=== PATIENT | male | born 1955 | race Caucasian/White ===

== ENCOUNTER 2022-10-28 09:42 | Outpatient (AMB) | payer MEDICARE, SELFPAY ==
--- NOTE | 2022-10-28 09:50 | MHC.PC.OV ---
Vital Signs 10/28/22 09:53 Height 5 ft 7 in Weight 215 lb BMI 33.6 BP 118/70 Blood Pressure Location Lt brachial Position Sitting Pulse 93 Pulse Source Pulse Oximeter Pulse Oximetry (%) 96 Oxygen Delivery Method Room Air Intake Visit Reasons: Est. care Intake Note: Pt is here today as a New Patient to est care/PE Allergies No Known Allergies Allergy (Verified 10/28/22 10:10) Medication List - Last Reconciled 10/28/22 by Gosia Wilson MD No Known Home Meds Tobacco use date assessed: 10/28/22 Fall risk assessment: No Falls in past year Last assessed Fall Risk: 10/28/22 HPI Est. care HPI Details 67-year-old male, here today to establish care with new PCP and for physical exam. He was initially seen at [facility], after he moved here from [place] with his . 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 He has history of hypertension and hyperlipidemia in the past, but stopped medication intake several years ago, trying to control both through diet and exercise. He states that he was on lisinopril in the past and took atorvastatin but stop taking it due to increased myalgia. As per last PCP note , he had a screening colonoscopy done in 2016, was supposed to be repeated in 5 years.? History of small-bowel obstruction that resolved with bowel rest, unclear if the etiology. He has history of cervical fracture in 2007 complains of occasional arthralgia in both knees, has questionable history of gout [facility] Medical History (Updated 10/28/22 @ 10:19 by Gosia Wilson MD) Hx of gout Surgical History (Updated 10/28/22 @ 10:17 by Gosia Wilson MD) History of tonsillectomy Family History (Updated 10/28/22 @ 10:18 by Gosia Wilson MD) Father Hypertension Social History Housing: House Patient Tobacco Use Status: Never used Tobacco e-Cigarette/Vaping Use: Never Used service: No Current occupational status: employed Cognitive needs: No Hearing needs: No Vision needs: Yes Questionnaire PHQ-9 Over the last 2 weeks, how often have you been bothered by any of the following problems? 1. Little interest or pleasure in doing things: not at all 2. Feeling down, depressed, or hopeless: not at all 3. Trouble falling or staying asleep, or sleeping too much: not at all 4. Feeling tired or having little energy: not at all 5. Poor appetite or overeating: not at all 6. Feeling bad about yourself - or that you are a failure or have let yourself or your family down: not at all 7. Trouble concentrating on things, such as reading the newspaper or watching television: not at all 8. Moving or speaking so slowly that other people could have noticed. Or the opposite - being so fidgety or restless that you have been moving around a lot more than usual: not at all 9. Thoughts that you would be better off or of hurting yourself in some way: not at all Total score: 0 Source: Developed by Drs. Dionte Camp, Marleny May, Bartolome Oconnor and colleagues, with an educational priyanka from [employer]. Thrive Questionnaire Declines Thrive assessment: No Date Thrive assessed: 10/28/22 I am a: Patient What is your living situation today?: I have a steady place to live Within the past 12 months, did the food you bought not last and you didn't have the money to get more?: Never true Within the past 12 months, did you worry whether your food would run out before you got money to buy more?: Never true Do you have trouble paying for medicines?: No Do you have trouble getting transportation to medical appointments?: No Do you have trouble paying your heating and electricity bill?: No Do you have trouble taking care of your child, family member or friend?: No Do you have trouble with day-to-day activities such as bathing, preparing meals, shopping, managing finances, etc.?: No Are you currently unemployed and looking for a job?: No Are you interested in more education?: Yes AUDIT C Alcohol Use Questionnaire (AUDIT-C) 1. How often do you have a drink containing alcohol?: Never Total Score: 0 NUZHAT-7 AMB Questionnaire NUZHAT-7 Date NUZHAT - 7 assessed: 10/28/22 Feeling nervous, anxious, or on edge: 0 = Not at all Not being able to stop or control worryin = Not at all Worrying too much about different things: 0 = Not at all Trouble relaxin = Not at all Being so restless that it is hard to sit still: 0 = Not at all Becoming easily annoyed or irritable: 0 = Not at all Feeling afraid as if something awful might happen: 0 = Not at all Total NUZHAT-7 score (0-4 normal; 5-9 mild; 10-14 moderate; 15-21 severe): 0 Source: Developed by Drs. Dionte Camp, Marleny May, Bartolome Oconnor and colleagues, with an educational priyanka from [employer]. Physical exam (Primary Care) Vital Signs: Last Vital Signs Pulse 93 10/28/22 09:53 BP 118/70 10/28/22 09:53 Pulse Ox 96 10/28/22 09:53 Oxygen Delivery Method Room Air 10/28/22 09:53 BMI result Body Mass Index 33.6 Tobacco/Smoking Status: Tobacco use Status Tobacco use date assessed 10/28/22 10/28/22 09:56 Patient Tobacco Use Status Never used Tobacco 10/28/22 09:56 e-Cigarette/Vaping Use Never Used 10/28/22 09:56 Assessment and Plan Assessment & Plan (1) Annual visit for general adult medical examination with abnormal findings: Code(s): Z00.01 - Encounter for general adult medical examination with abnormal findings Plan: Will check appropriate labs. Recommended dental visit every 6 months and regular eye exams, at least every 2 years, [place] [employer] [place]. Take adequate calcium in diet and vitamin-D 3 at 2000 IU per cap once a day, in addition to weight-bearing exercises to help maintain good muscle tone and weight control. Instructed to do self-b testicular exam to check for any mass. Patient advised to get his COVID vaccine, flu shot pneumonia vaccine and shingles but patient declined. As per the history he had a colonoscopy in 2016 at [place], was recommended to get it done in 5 years but as per patient , they only saw hemorrhoids. Does Not want to get a colonoscopy, but is willing to do the Cologuard testing, order sent (2) Screening for prostate cancer: Code(s): Z12.5 - Encounter for screening for malignant neoplasm of prostate Plan: PSA ordered (3) Advanced directives, counseling/discussion: Code(s): Z71.89 - Other specified counseling Plan: Initiated the conversation about Advanced Directives. Advanced Directives help patients prepare for current and future decisions about their medical treatment and place of care. Discussed with patient that it is a process where a patients current condition and prognosis are reviewed, their wishes for information regarding their illness are elicited, and likely medical dilemmas are presented and options discussed.Health Care Proxy form completed. The form can be amended as needed, reviewed yearly and make changes as needed Orders: Orders Alanine Aminotransferase Today Z00.01 - Encounter for general adult medical examination with abnormal findings, Z87.39 - Personal history of other diseases of the musculoskeletal system and connective tissue Aspartate Amino Transferase Today Z00.01 - Encounter for general adult medical examination with abnormal findings, Z87.39 - Personal history of other diseases of the musculoskeletal system and connective tissue Basic Metabolic Panel Fasting Today Z00.01 - Encounter for general adult medical examination with abnormal findings, Z87.39 - Personal history of other diseases of the musculoskeletal system and connective tissue Lipid Panel Today Z00.01 - Encounter for general adult medical examination with abnormal findings, Z87.39 - Personal history of other diseases of the musculoskeletal system and connective tissue PSA,Total (Free>4and<10) Today Z00.01 - Encounter for general adult medical examination with abnormal findings, Z12.5 - Encounter for screening for malignant neoplasm of prostate, Z87.39 - Personal history of other diseases of the musculoskeletal system and connective tissue Uric Acid Today Z00.01 - Encounter for general adult medical examination with abnormal findings, Z87.39 - Personal history of other diseases of the musculoskeletal system and connective tissue Complete Blood Count Auto Diff Today Z00.01 - Encounter for general adult medical examination with abnormal findings, Z87.39 - Personal history of other diseases of the musculoskeletal system and connective tissue Referrals Cologuard Test Z12.11 - Encounter for screening for malignant neoplasm of colon, Z12.12 - Encounter for screening for malignant neoplasm of rectum Review Patient declined Colonoscopy: 10/28/22 Patient declined Pneumococcal Vaccine: 10/28/22 Flu Vaccine not done: patient reason (Patient declined) Declined TDap/Td: 10/28/22 Coding Level of Care Code Est Pt Prev Care >65y(21534) Diagnoses Annual visit for general adult medical examination with abnormal findings Z00.01 Screening for prostate cancer Z12.5 Advanced directives, counseling/discussion Z71.89
[2022-10-28 09:53] VITALS: BP 118/70; PULSE 93; O2SAT 96; BMI 33.6
== END 2022-10-28 13:58 | disposition home or self-care (01) ==
PROVIDERS: PCP Internal Medicine; Visit Provider Internal Medicine
DX: Z00.01 Encounter for general adult medical examination with abnormal findings (principal); Z12.5 Encounter for screening for malignant neoplasm of prostate; Z71.89 Other specified counseling
CPT/HCPCS: 99499

== ENCOUNTER 2022-11-09 06:08 | Outpatient (REF) | payer MEDICARE, SELFPAY ==
[2022-11-09 11:19] LABS: MANUAL DIFF FLAG NO
[2022-11-09 11:23] LABS: Basophils Absolute Auto 0.1 X10*3/uL (0.0-0.2); Basophils Percent Auto 1.4 % (0-2); Eosinophils Absolute Auto 0.5 X10*3/uL (0.0-0.4); Eosinophils Percent Auto 7.8 % (0-4); Hematocrit 46.9 % (42.0-52.0); Hemoglobin 15.9 g/dl (14.0-18.0); Imm Gran Abs Auto 0.02 X10*3/uL (0.00-0.03); Imm Gran Pct Auto 0.3 % (0.0-0.4); Lymphocytes Absolute Auto 0.6 X10*3/uL (1.2-4.9); Lymphocytes Percent Auto 10.9 % (20-40); Mean Corpuscular HGB Conc 33.9 g/dl (31.0-36.0); Mean Corpuscular Hemoglobin 30.1 pg (27.0-33.0); Mean Corpuscular Volume 88.7 fL (80.0-98.0); Mean Platelet Volume 11.1 fL (9.4-12.4); Monocytes Absolute Auto 0.7 X10*3/uL (0.1-1.2); Monocytes Percent Auto 11.8 % (2-11); Neutrophils Absolute Auto 3.9 x10*3/uL (2.0-8.3); Neutrophils Percent Auto 67.8 % (45-73); Platelet Count 247 X10*3/uL (160-400); Red Blood Count 5.29 X10*6/uL (4.60-5.80); White Blood Count 5.8 X10*3/uL (4.8-10.8)
[2022-11-09 11:38] LABS: Alanine Aminotransferase 18 U/L (0-40); Anion Gap 11 (12-20); Aspartate Amino Transferase 20 U/L (5-37); Blood Urea Nitrogen 18 mg/dL (9-16); Calcium 9.4 mg/dL (8.4-10.2); Carbon Dioxide 27 mmol/L (22-29); Chloride 107 mmol/L (96-108); Cholesterol 193 mg/dL; Estimated Glomerular Filt Rate > 60; Glucose Fasting 115 mg/dL (60-99); HDL Cholesterol 33 mg/dL; LDL Cholesterol Calculated 138 mg/dl; Potassium 4.4 mmol/L (3.3-5.1); Sodium 141 mmol/L (135-145); Triglycerides 111 mg/dL
== END 2022-11-09 06:09 | disposition home or self-care (01) ==
LOC: HO.HMGCLDS 06:08
PROVIDERS: PCP Internal Medicine; Visit Provider Internal Medicine
DX: Z00.01 Encounter for general adult medical examination with abnormal findings (principal); Z12.5 Encounter for screening for malignant neoplasm of prostate; Z87.39 Personal history of other diseases of the musculoskeletal system and connective tissue
CPT/HCPCS: 36415; 80048; 80061; 84153; 84450; 84460; 84550; 85025

== ENCOUNTER 2023-11-01 10:50 | Outpatient (AMB) | payer MEDICARE, SELFPAY ==
--- NOTE | 2023-11-01 11:12 | A.OFFPC_ITS ---
Vital Signs 11/01/23 11:13 Height 5 ft 7 in Weight 209 lb 6 oz BMI 32.8 BP 132/88 Blood Pressure Location Lt brachial Position Sitting Pulse 82 Pulse Source Pulse Oximeter Pulse Oximetry (%) 98 Oxygen Delivery Method Room Air Intake Visit Reasons: PE Intake Note: Pt is here for his Annual PE Allergies No Known Allergies Allergy (Verified 11/01/23 11:32) Medication List - Last Reconciled 11/01/23 by Gosia Wilson MD No Known Home Meds Tobacco use date assessed: 11/01/23 Fall risk assessment: No Falls in past year Last assessed Fall Risk: 11/01/23 Dental Screening Dental Screen Date: 11/01/23 Did you have a dental visit in the last 12 months?: Yes Did you have a dental problem in the last 6 months where you did not have access to dental care?: No Was dental information given to patient?: Patient has dentist HPI PE HPI Details [age]-year-old male, here today for his ph ysical exam. He has a mild elevation is LDL cholesterol on last check, and fasting glucose was in the prediabetic range on last year's physical exam. At present however he does not have any complains. Declined a screening colonoscopy last year but did a Cologuard earlier this year which came back negative, repeat again in 3 years. [facility] Medical History (Updated 11/01/23 @ 11:54 by Gosia Wilson MD) Vaccine refused by patient Impaired fasting glucose Negative colorectal cancer screening using DNA-based stool test Hx of gout Surgical History History of tonsillectomy Family History Father Hypertension Social History Housing: House Patient Tobacco Use Status: Never used Tobacco e-Cigarette/Vaping Use: Never Used service: No Current occupational status: employed Cognitive needs: No Hearing needs: No Vision needs: Yes Questionnaire PHQ-9 Over the last 2 weeks, how often have you been bothered by any of the following problems? 1. Little interest or pleasure in doing things: not at all 2. Feeling down, depressed, or hopeless: not at all 3. Trouble falling or staying asleep, or sleeping too much: not at all 4. Feeling tired or having little energy: not at all 5. Poor appetite or overeating: not at all 6. Feeling bad about yourself - or that you are a failure or have let yourself or your family down: not at all 7. Trouble concentrating on things, such as reading the newspaper or watching television: not at all 8. Moving or speaking so slowly that other people could have noticed. Or the opposite - being so fidgety or restless that you have been moving around a lot more than usual: not at all 9. Thoughts that you would be better off or of hurting yourself in some way: not at all Total score: 0 Depression Screening Interpretation: Negative Depression Screening Done: Yes 13616 - PHQ-9 Billing: Yes Source: Developed by Drs. Dionte Camp, Marleny May, Bartolome Oconnor and colleagues, with an educational priyanka from [employer]. Thrive Questionnaire Date Thrive assessed: 11/01/23 I am a: Patient What is your living situation today?: I have a steady place to live Within the past 12 months, did the food you bought not last and you didn't have the money to get more?: Never true Within the past 12 months, did you worry whether your food would run out before you got money to buy more?: Never true Do you have trouble paying for medicines?: No Do you have trouble getting transportation to medical appointments?: No Do you have trouble paying your heating and electricity bill?: No Do you have trouble taking care of your child, family member or friend?: No Do you have trouble with day-to-day activities such as bathing, preparing meals, shopping, managing finances, etc.?: No Are you currently unemployed and looking for a job?: No Are you interested in more education?: No AUDIT C Alcohol Use Questionnaire (AUDIT-C) 1. How often do you have a drink containing alcohol?: Never Total Score: 0 NUZHAT-7 AMB Questionnaire NUZHAT-7 Date NUZAHT - 7 assessed: 11/01/23 Feeling nervous, anxious, or on edge: 0 = Not at all Not being able to stop or control worryin = Not at all Worrying too much about different things: 0 = Not at all Trouble relaxin = Not at all Being so restless that it is hard to sit still: 0 = Not at all Becoming easily annoyed or irritable: 0 = Not at all Feeling afraid as if something awful might happen: 0 = Not at all Total NUZHAT-7 score (0-4 normal; 5-9 mild; 10-14 moderate; 15-21 severe): 0 Source: Developed by Drs. Dionte Camp, Marleny May, Bartolome Oconnor and colleagues, with an educational priyanka from [employer]. NUZHAT-7 Assessment Billing NUZHAT-7 Assessment Tool: NUZHAT-7 Assessment 19493 Review of Systems Const Denies body aches, Denies fatigue, Denies fever(s), Denies headache(s) and Denies weakness Eyes Details: Recently seen by eye doctor in [place], beginning cataracts, no other changes seen Denies change in vision, Denies eye discharge and Denies itchy eyes ENT Denies dizziness, Denies headache(s), Denies nasal congestion, Denies nasal discharge and Denies sore throat Card Denies chest pain, Denies lightheadedness, Denies palpitations and Denies dyspnea Resp Denies chest congestion, Denies cough, Denies dyspnea and Denies wheezing GI Denies abdominal pain, Denies change in bowel habits and Denies heartburn Denies hematuria, Denies difficulty urinating, Denies dysuria, Denies urinary frequency and Denies urinary urgency Musc Reports no additional complaints Skin/Breast Denies lesions and Denies rash Neuro Denies dizziness, Denies headache(s) and Denies weakness Psych Reports no additional complaints Endo Denies fatigue, Denies polydipsia, Denies polyuria and Denies palpitations Rey/Lymph Denies easy bruising Aller/Immun Denies itchy eyes, Denies seasonal rhinorrhea and Denies wheezing Physical exam (Primary Care) Vital Signs: Last Vital Signs Pulse 82 11/01/23 11:13 BP 132/88 11/01/23 11:13 Pulse Ox 98 11/01/23 11:13 Oxygen Delivery Method Room Air 11/01/23 11:13 BMI result Body Mass Index 32.8 Tobacco/Smoking Status: Tobacco use Status Tobacco use date assessed 11/01/23 11/01/23 11:17 Patient Tobacco Use Status Never used Tobacco 11/01/23 11:12 e-Cigarette/Vaping Use Never Used 11/01/23 11:12 Depression Screening Interpretation: Negative Thrive Assessment: Date of Thrive Assessment Date Thrive assessed 10/28/22 11/01/23 11:12 Const General: no acute distress and alert Nutritional Appearance: obese Orientation/consciousness: patient oriented x3 HENMT Head: Yes normocephalic and Yes atraumatic Ears: external ears normal, TM's normal bilaterally and EAC's normal General nose exam: Normal external nose present and No nasal discharge present Face and sinus: Yes face symmetric Mouth: Normal oral and palatal mucosa present, lip normal, tongue normal, oropharynx normal and moist mucous membranes Eyes General: appearance normal, both eyes and all related structures Eyelids: Yes eyelids normal Conjunctivae: conjunctivae normal Sclerae: sclerae normal Pupils: Equal, round and reactive pupils present EOM: EOMs intact bilaterally Neck Neck: Yes full ROM, Yes no lymphadenopathy and Yes supple Thyroid: Thyroid normal Chest Chest palpation & inspection: normal inspection of the chest and normal palpation of entire chest wall Resp Effort & Inspection: normal respiratory effort and able to speak in complete sentences Auscultation: clear to auscultation bilaterally Cardio Rate: regular rate Rhythm: regular rhythm Heart sounds: S1 normal heart sound present and S2 normal heart sound present GI Palpation (GI): Soft to palpation, nontender, no guarding and no masses Auscultation: normal bowel sounds General: Yes no CVA tenderness Male General Exam: Yes normal external exam and No hernia Back/Spine/Pelvis Back: no CVA tenderness and No back tenderness Skin General skin exam: no rashes or lesions noted Neuro General: patient oriented x3, gait normal, moves all extremities, Normal light touch and pain sensation, no focal motor deficits and CN's II-XI intact bilaterally Cranial nerves: Yes Equal, round and reactive pupils present Cognition (Neuro): normal cognition Gait exam (Neuro): Normal gait present Motor exam (neuro): 5/5 motor strength present throughout Extrem General: Yes normal to inspection, Yes full ROM, Yes no joint enlargement, Yes no pedal edema and Yes normal gait Psych Appearance: grossly normal and well kempt Mental Status: mental status grossly normal Speech and movement: Normal speech and movement present Affect: normal affect Attitude: cooperative Thought process: Normal thought process present Thought content: Normal thought content present Assessment and Plan Assessment & Plan (1) Annual visit for general adult medical examination with abnormal findings: Code(s): Z00.01 - Encounter for general adult medical examination with abnormal findings Plan: Will check appropriate labs. Continue regular dental visit every 6 months and regular eye exams, at least every 2 years. Take adequate calcium in diet and vitamin-D 3 at 2000 IU per cap once a day, in addition to weight-bearing exercises to help maintain good muscle tone and weight control. Instructed to do self-testicular exam, check for any mass . Declined vaccination. Up-to-date with his colon cancer screening, had Cologuard testing done earlier this year with negative findings. (2) Screening for prostate cancer: Code(s): Z12.5 - Encounter for screening for malignant neoplasm of prostate Plan: PSA ordered (3) Elevated LDL cholesterol level: Code(s): E78.00 - Pure hypercholesterolemia, unspecified Plan: Repeat fasting lipid panel (4) Impaired fasting glucose: Code(s): R73.01 - Impaired fasting glucose Plan: Hemoglobin A1c and fasting blood sugar ordered. Your fasting blood sugars 1 elevated above 100 mg/dL last year.. Impaired glucose metabolism O2 at risk for developing diabetes mellitus type 2, as well as heart attack and stroke later on. Lifestyle changes at just weight loss, healthy eating habits, and regular exercise are important, and can prevent the progression to diabetes (5) Vaccine refused by patient: Code(s): Z28.20 - Immunization not carried out because of patient decision for unspecified reason Orders: Orders Basic Metabolic Panel Fasting Today E78.00 - Pure hypercholesterolemia, unspecified, R73.01 - Impaired fasting glucose, Z00.01 - Encounter for general adult medical examination with abnormal findings, Z12.5 - Encounter for screening for malignant neoplasm of prostate Lipid Panel Today E78.00 - Pure hypercholesterolemia, unspecified, R73.01 - Impaired fasting glucose, Z00.01 - Encounter for general adult medical examination with abnormal findings, Z12.5 - Encounter for screening for malignant neoplasm of prostate PSA,Total (Free>4and<10) Today E78.00 - Pure hypercholesterolemia, unspecified, R73.01 - Impaired fasting glucose, Z00.01 - Encounter for general adult medical examination with abnormal findings, Z12.5 - Encounter for screening for malignant neoplasm of prostate Hemoglobin A1c Today E78.00 - Pure hypercholesterolemia, unspecified, R73.01 - Impaired fasting glucose, Z00.01 - Encounter for general adult medical examination with abnormal findings, Z12.5 - Encounter for screening for malignant neoplasm of prostate Coding Level of Care Code Est Pt Prev Care >65y(78950) Diagnoses Annual visit for general adult medical examination with abnormal findings Z00. 01 Screening for prostate cancer Z12.5 Elevated LDL cholesterol level E78.00 Impaired fasting glucose R73.01 Vaccine refused by patient Z28.20 Additional Codes NUZHAT-7 Assessment Billing - NUZHAT-7 Assessment Tool: NUZHAT-7 Assessment [id number] ([id number])
[2023-11-01 11:13] VITALS: BP 132/88; PULSE 82; O2SAT 98; BMI 32.8
== END 2023-11-01 11:51 | disposition home or self-care (01) ==
PROVIDERS: Visit Provider Internal Medicine
DX: Z00.00 Encounter for general adult medical examination without abnormal findings (principal); Z12.5 Encounter for screening for malignant neoplasm of prostate; E78.00 Pure hypercholesterolemia, unspecified; R73.01 Impaired fasting glucose; Z28.20 Immunization not carried out because of patient decision for unspecified reason
CPT/HCPCS: 99397

== ENCOUNTER 2025-08-09 06:44 | Outpatient (REF) | payer MEDICARE, SELFPAY ==
--- OUTSIDE RECORDS SUMMARY | 2025-08-09 06:48 | XMS_ITS | Data Portability ---
Author Organization [place] [facility] Faiza Frazier AONE [place] Address [address] [place] [address] Care Team Providers Care As400 Developer Name Role Phone JYOTHI MUNOZ Primary Care Provider JYOTHI MUNOZ Referring Provider [phone] Assessment Encounter Date Assessment Date Assessment LastModified by Organization Details LastModified Time 04/24/2025 04/24/2025 HPI: 69-year-old keldq-nqqa-hbrytw nt man presenting with left shoulder pain for the past 8 months. Is noted decreased range of motion he has no pain during the day but his pain worsens at night. 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 He rates his pain at best 0 out of 10 at worst 7-10. SANE score 98%. ROS as per HPI. PHYSICAL EXAM: Constitutional: Well-developed, well-nourished, healthy appearing. Skin: Warm, dry, and without rashes. Pulmonary: Non-labored respirations on room air without audible wheezes. Musculoskeletal: Patient ambulates with a slow, symmetric, and steady gait. Active range of motion of the RIGHT shoulder is 170,50, T8 and LEFT shoulder is 160,50, T10 On the symptomatic LEFT shoulder, Neer & Hakwins signs are Negative, Krysta sign is Negative and resisted ER strength is preserved 5/5 On the contralateral RIGHT shoulder, Neer & Hakwins signs are Negative, Krysta sign is Negative and resisted ER strength is preserved 5/5 No AC, SC, biceps signs, cross body adduction, scars, atrophy, deformity, belly press, lift off, external rotation lag sign, internal rotation lag sign, Hornblower's bilaterally. Fingers well perfused and normal. Capillary refill less than 2 seconds. Neurovascular exam, cervical spine exam, trunk and skin are normal. IMPRESSION: with LEFT shoulder glenohumeral arthritis PLAN: I discussed the treatment options with the Patient includin. Living with the symptoms. 2. Continued non-operative management. 3. Surgical intervention. Nonoperative management be in the form of activity modification, relative rest, judicious use of anti-inflammatory medications as well as cryotherapy and corticosteroid injections. Operative intervention would be in the form of anatomic versus possible reverse shoulder replacement. We reviewed the risks and benefits of surgery including but not limited to the following: Risk of anesthesia, including ; infection; nerve/tendon/vess el injury; deep venous thrombosis (DVT), pulmonary embolism (PE); shoulder stiffness, allograft-related complications including but not limited to failure, disease transmission; hardware-related problems; failure of the graft to heal; failure of the partial rotator cuff repair to heal if performed; hardware-related problems, potential of the procedure to not alleviate the condition, pain, stiffness, scarring, arthritis, reaction, unexpected findings, erica biceps muscle appearance, and the potential need for further surgery in the future. A discussion regarding the risks and benefits of a subacromial corticosteroid injection was had with the patient. Risks include but not limited to pain, swelling, bleeding, infection, allergic reaction, elevated blood sugars, incomplete pain relief, tendon injury, bone loss, nerve damage, permanent skin depigmentation, fat atrophy and steroid flare. After reviewing treatment options. Patient is interested in pursuing activity modification as well as physical therapy. Prescription for physical therapy was provided. Patient may follow-up in 3 months for repeat clinical evaluation continue discussion regarding treatment options. Patient verbalized understanding of this and was agreed with the plan. All questions were answered to the patient's satisfaction. Not available 04/29/2025 14:56:51 07/31/2025 07/31/2025 HPI: Patient is doing better. Is making significant progress with physical therapy feeling better. prior 69-year-old oyslb-xhwa-pffuzi nt man presenting with left shoulder pain for the past 8 months. Is noted decreased range of motion he has no pain during the day but his pain worsens at night. 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 He rates his pain at best 0 out of 10 at worst 7-10. SANE score 98%. ROS as per HPI. PHYSICAL EXAM: Constitutional: Well-developed, well-nourished, healthy appearing. Skin: Warm, dry, and without rashes. Pulmonary: Non-labored respirations on room air without audible wheezes. Musculoskeletal: Patient ambulates with a slow, symmetric, and steady gait. Active range of motion of the RIGHT shoulder is 170,50, T8 and LEFT shoulder is 160,50, T10 On the symptomatic LEFT shoulder, Neer & Hakwins signs are Negative, Krysta sign is Negative and resisted ER strength is preserved 5/5 On the contralateral RIGHT shoulder, Neer & Hakwins signs are Negative, Krysta sign is Negative and resisted ER strength is preserved 5/5 No AC, SC, biceps signs, cross body adduction, scars, atrophy, deformity, belly press, lift off, external rotation lag sign, internal rotation lag sign, Hornblower's bilaterally. Fingers well perfused and normal. Capillary refill less than 2 seconds. Neurovascular exam, cervical spine exam, trunk and skin are normal. 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 He is made significant progress in physical therapy. At this point I provided him with a new home exercise program and a new prescription for physical therapy. He may follow-up on an as-needed basis. Patient was in agreement with plan and all questions were answered to their satisfaction. Should they have any questions or concerns they should not hesitate to call the office. prior I discussed the treatment options with the Patient includin. Living with the symptoms. 2. Continued non-operative management. 3. Surgical intervention. Nonoperative management be in the form of activity modification, relative rest, judicious use of anti-inflammatory medications as well as cryotherapy and corticosteroid injections. Operative intervention would be in the form of anatomic versus possible reverse shoulder replacement. We reviewed the risks and benefits of surgery including but not limited to the following: Risk of anesthesia, including ; infection; nerve/tendon/vess el injury; deep venous thrombosis (DVT), pulmonary embolism (PE); shoulder stiffness, allograft-related complications including but not limited to failure, disease transmission; hardware-related problems; failure of the graft to heal; failure of the partial rotator cuff repair to heal if performed; hardware-related problems, potential of the procedure to not alleviate the condition, pain, stiffness, scarring, arthritis, reaction, unexpected findings, erica biceps muscle appearance, and the potential need for further surgery in the future. A discussion regarding the risks and benefits of a subacromial corticosteroid injection was had with the patient. Risks include but not limited to pain, swelling, bleeding, infection, allergic reaction, elevated blood sugars, incomplete pain relief, tendon injury, bone loss, nerve damage, permanent skin depigmentation, fat atrophy and steroid flare. After reviewing treatment options. Patient is interested in pursuing activity modification as well as physical therapy. Prescription for physical therapy was provided. Patient may follow-up in 3 months for repeat clinical evaluation continue discussion regarding treatment options. Patient verbalized understanding of this and was agreed with the plan. All questions were answered to the patient's satisfaction. Not available 07/31/2025 16:47:11 Plan of Treatment Reminders Order Date Submit Date Provider Last Modified By Organization Details Last Modified Time Details Appointments None recorded. Lab None recorded. Referral physical therapist referral - Left glenohumera l arthritis 2-3 times per week for 12 weeks, work on range of motion, forward elevation, external rotation, internal rotation. Passive and active range of motion rotator cuff strengtheni ng 2024 025 [email or web address] Not available 16:22:13 physical therapist referral - Left glenohumera l arthritis 2-3 times per week for 12 weeks, work on range of motion, forward elevation, external rotation, internal rotation. Passive and active range of motion rotator cuff strengtheni ng 2024 025 [email or web address] Not available 07:41:31 Procedures None recorded. Surgeries None recorded. Imaging XR, shoulder, 2 or more view 2024 025 [email or web address] [facility], [address], [address], [place], [address], 16:32:35 Medication Orders None recorded. Patient TargetsNo targets recorded. Patient Instructions Encounter Date Encounter Id Patient Instructions Last Modified By Organization Details Last Modified Time 04/24/2025 [id number] Imaging: X-ray LEFT shoulder, independent interpretation of AP and Axillary views by me show: located glenohumeral joint with moderate glenohumeral arthritis, bone on bone, osteophytes, sclerosis, and cysts. The glenoid has Walch A2 wear pattern without significant posterior subluxation. Not available 04/29/2025 14:57:01 Reason for Referral Physical Therapist Referral for Osteoarthritis of left glenohumeral joint Left glenohumeral arthritis2-3 times per week for 12 weeks, work on range of motion, forward elevation, external rotation, internal rotation. Passive and active range of motion rotator cuff strengthening Referring Physician: Roger Hi, Orthopedic Surgery, Encounter Date: 04/24/2025 Physical Therapist Referral for Osteoarthritis of left glenohumeral joint Left glenohumeral arthritis2-3 times per week for 12 weeks, work on range of motion, forward elevation, external rotation, internal rotation. Passive and active range of motion rotator cuff strengthening Referring Physician: Roger Hi, Orthopedic Surgery, Encounter Date: 07/31/2025 Problems Name Problem SNOMED Code Status Onset Date Resolution Date Notes Provider Name and Address Organization Details Recorded Time Osteoarthr itis of left glenohumer al joint 0312617648307 104 Active [address], [place], [address] , [place] [facility], [facility] 5 16:00:42 Adhesive capsulitis of shoulder 516841535 Active [address], [place], [address] , [place] [facility], [facility] 5 16:00:49 Pain of left shoulder region Active [address], [place], [address] , [place] [facility], [facility] 5 16:21:44 Problem Notes None recorded. Medical Equipment None Reported. Allergies No known drug allergies Medications Not known to be on any medication Vitals Date Recorded Body height Body mass index (BMI) Body weight Provider Name and Address Organization Details Last Updated DateTime 04/24/2025 175.26 cm 29.5 kg/m2 10260.[address] [place] [facility], 04/25/2025 11:42:05 Social History None recorded. Functional Status Question Answer Note LastModified by Organizat ion Details LastModified Time Do you use any illicit or recreational drugs? No [email or web address] Information not available 04/25/2025 Do you or have you ever used any other forms of tobacco or nicotine? No [email or web address] Information not available 04/25/2025 What is your level of alcohol consumption? None [email or web address] Information not available 04/25/2025 Mental Status None recorded. Family History Nothing Reported. Medical History Condition Response Coronary Artery Disease N Gout N Hyperthyroidism N Blood Transfusion N MRSA N Emphysema N Depression N COPD N Hypothyroidism N Pacemaker N Vascular Disease N Gastrointestinal Disease N Anxiety Disorder N Autoimmune disease N Arthritis N Cancer N Stroke N High Cholesterol N Neurologic Disorder N Liver Disease N Organ Transplant N Arrhythmia N Rheumatoid Arthritis N Fibromyalgia N Kidney Disease N Allergies/Hayfever N Adverse Reaction to Anesthesia N Thyroid Problems N Anemia N Brain Injury N Heart Attack (MS) N Osteopenia N Diabetes N Bleeding Disorder N Seizures/Epilepsy N AIDS/HIV N Congestive Heart Failure (CHF) N Asthma N Amputation N Reflux/GERD N Sleep Apnea N Hepatitis N Aneurysm N Heart Disease N Pulmonary Embolism N Hypertension N Osteoporosis N Past Encounters Encounter ID Performer Location Encounter Start Date Encounter Closed Date Diagnosis/Indication Diagnosis SNOMED-CT Code Diagnosis ICD10 Code Diagnosis IMO Codes Diagnosis Note [id number] MD WILLIAMS [address] [address] 04/24/2025 15:11:38 04/24/2025 16:02:36 Pain of left shoulder region 0353247652 M25.512 [id number] Osteoarthr itis of left glenohumeral joint 3224696309 909239 M19.012 [id number] MD FEDERICO Aldana [address] [address] 07/31/2025 16:06:18 07/31/2025 16:22:07 Osteoarthritis of left glenohumeral joint 3425778026 994993 M19.012 [id number] Pain of le ft shoulder region 6072762472 M25.512 [id number] Health Concerns Section Related Observation LastModified by Organization Detai ls LastModified Time None Recorded Concern Status LastModified by Organization Details LastModified Time None Recorded Advance Directives Directive None Recorded Payers Insurance Date Sequence Insurance Name Policy Number Policy Foster Covered Member ID Foster Member ID Guarantor Name 07/28/2025 1 [id number] - [place]) [id number] Manuel [id number] Manuel [id number]
--- OUTSIDE RECORDS SUMMARY | 2025-08-09 06:48 | XMS_ITS ---
Author Name [facility] Organization Unknown History of Medication Use Medication Directions Dispensed Refills Start Date End Date Stat us active Problems Problem Status Onset Date Problem Type Date of Resoluti on Source Pain of left shoulder region active 2025-07-31 ProblemAct [facility] Adhesive capsulitis of shoulder active 2025-04-24 ProblemAct [facility] Osteoarthritis of left glenohumeral joint active 2025-04-24 ProblemAct [facility] T Encounters Encounter Type Encounter Reason Primary Diagnosis Location Date Ambulatory [facility] 08/01/2025 Ambulatory [facility] 07/31/2025 [facility] 04/30/2025 Ambulatory [facility] 04/24/2025 Amb[facility] 04/24/2025 Ambulatory [facility] 04/24/2025 Ambulatory [facility] 04/23/2025 Ambulatory [facility] 04/23/2025 Ambulatory [facility] 04/18/2025
[2025-08-09 11:30] LABS: Alanine Aminotransferase 21 U/L (0-40); Anion Gap 9 (12-20); Aspartate Amino Transferase 27 U/L (5-37); Blood Urea Nitrogen 15 mg/dL (9-16); Calcium 9.1 mg/dL (8.4-10.2); Carbon Dioxide 29 mmol/L (22-29); Chloride 106 mmol/L (96-108); Cholesterol 196 mg/dL (<200); Estimated Glomerular Filt Rate > 60; HDL Cholesterol 33 mg/dL (>40); Potassium 4.1 mmol/L (3.3-5.1); Sodium 140 mmol/L (135-145); Triglycerides 112 mg/dL (<150)
[2025-08-09 11:50] LABS: PSA,Total (Free>4and<10) 2.47 ng/mL (0.00-4.00)
== END 2025-08-09 06:45 | disposition home or self-care (01) ==
LOC: HO.HMGCLDS 06:44
PROVIDERS: PCP Internal Medicine; Visit Provider Internal Medicine
DX: R73.01 Impaired fasting glucose (principal); Z13.220 Encounter for screening for lipoid disorders; Z13.1 Encounter for screening for diabetes mellitus; Z12.5 Encounter for screening for malignant neoplasm of prostate; Z13.6 Encounter for screening for cardiovascular disorders
CPT/HCPCS: 36415; 80048; 80061; 83036; 84153; 84450; 84460